=== PATIENT | male | born 1990 | race Caucasian/White ===

== ENCOUNTER → 2017-05-13 | Outpatient (CLI) | payer OTHER | LOC: FIMAGING 14:52 | PROVIDERS: ATTEND Otolaryngology | DX: Z01.818 Encounter for other preprocedural examination (principal); H66.90 Otitis media, unspecified, unspecified ear; H69.90 Unspecified Eustachian tube disorder, unspecified ear ==

== ENCOUNTER 2017-06-03 10:17 | Day surgery (SDC) | payer OTHER ==
[2017-06-03] MEDS ORDERED: LR 1,000 ML IV ONE (10:46)
[2017-06-03] MEDS ORDERED: OXYMETAZOLINE 30 ML NASAL SPRAY ONE ×2 (11:11→14:35)
[2017-06-03] MEDS ORDERED: BACITRACIN ZINC 14.2 GM OINTTUBE TP ONE (11:11)
[2017-06-03] MEDS ORDERED: CIPROFLOXACIN 0.3% ONE (11:12)
[2017-06-03] MEDS ORDERED: METHYLENE BLUE 0.5% 50 MG/10 ML AMP ONE (11:12)
--- NOTE | 2017-06-03 11:21 | PDANEPAE ---
ANE Past Medical History - Cardiovascular History Hx Hypertension: No Hx Arrhythmias: No Hx Chest Pain: No Hx Coronary Artery / Peripheral Vascular Disease: No Hx CHF / Valvular Disease: No Hx Palpitations: No - Pulmonary History Hx Asthma/Reactive Airway Disease: Yes Hx Recent Upper Respiratory Infection: No Hx Oxygen in Use at Home: No Hx Sleep Apnea: No Sleep Apnea Screening Result - Last Documented: Positive Pulmonary History Comment: FREQUENT PNEUMONIA/BRONCHITIS. LAST PNEUMONIA 2017 NO CURRENT SYMPTOMS - Neurologic History Hx Cerebrovascular Accident: No Hx Seizures: No Hx Dementia: No - Endocrine History Hx Diabetes: No Hypothyroid: No Hyperthyroid: No Obesity: yes, severe - Renal History Hx Renal Disorders: No - Liver History Hx Hepatic Disorders: No - Neurological & Psychiatric Hx Hx Neurological and Psychiatric Disorders: No - Cancer History Hx Cancer: No - Congenital Disorder History Hx Congenital Disorders: No - GI History GERD: no Hx Gastrointestinal Disorders: Yes Gastrointestinal History Comment: ? IBS - Other Health History Other Health History: LT WRIST INJURY YR AGO RESIDUAL ISSUES SWELLING LIMITED ROM - Chronic Pain History Chronic Pain: Yes (LT WRIST) - Surgical History Prior Surgeries: ORIF RT FEMUR ANE Review of Systems Review of Systems: - Exercise capacity METS (RN): 4 METS ANE Patient History - Allergies Allergies/Adverse Reactions: No Known Allergies Allergy (Unverified 05/28/17 11:29) - Home Medications Home Medications: Gabapentin [Neurontin 300 MG (*)] 300 mg PO TID 05/28/17 [Last Taken 06/02/17] Omeprazole 40 mg PO DAILY 05/28/17 [Last Taken 06/02/17] - NPO status NPO Since - Liquids (Date): 06/02/17 NPO Since - Liquids (Time): 23:00 NPO Since - Solids (Date): 06/02/17 NPO Since - Solids (Time): 21:30 - Anes Hx Anes Hx: no prior problems - Smoking Hx Smoking Status: Never smoked - Family Anes Hx Family Anes Hx: neg - N/A ANE Labs/Vital Signs - Vital Signs Blood Pressure: 138/82 Heart Rate: 93 Respiratory Rate: 16 O2 Sat (%): 93 Height: 180.34 cm Weight: 142.882 kg ANE Physical Exam - Airway Neck exam: FROM Mallampati Score: Class 2 Mouth exam: normal dental/mouth exam - Pulmonary Pulmonary: no respiratory distress, no rales or rhonchi, clear to auscultation - Cardiovascular Cardiovascular: regular rate and rhythym, no murmur, rub, or gallop - ASA Status ASA Status: II ANE Anesthesia Plan Anesthesia Plan: general endotracheal anesthesia Total IV Anesthesia: No
[2017-06-03] MEDS ORDERED: MIDAZOLAM 2 MG/2 ML VIAL IVP ONE (11:26)
[2017-06-03] MEDS ORDERED: ceFAZolin 2 GM/SWFI 2 GM/20 ML SYR IVP ONE (12:10)
--- NOTE | 2017-06-03 12:10 | PDHPUP ---
History & Physical Update H&P update statement: This history and physical update is based on an assessment of the patient which was completed after admission or registration (within 24 hours), but prior to the surgery/procedure. H&P update: H&P reviewed & patient examined, no change in patient's condition since H&P completed
[2017-06-03] MEDS ORDERED: ceFAZolin 2 GM/SWFI 20 ML SYR IVP ONE (12:19)
[2017-06-03] MEDS ORDERED: ceFAZolin 3 GM in STERILE WATER INJ 30 ML IV ONE (12:30)
[2017-06-03] MEDS ORDERED: PROPOFOL 200 MG/20 ML VIAL ONE (12:30)
[2017-06-03] MEDS ORDERED: LIDOCAINE 2% 5 ML SDV ONE (12:30)
[2017-06-03] MEDS ORDERED: fentaNYL 100 MCG/2 ML INJ ONE ×6 (12:30→16:03)
[2017-06-03] MEDS ORDERED: ROCURONIUM 50 MG/5 ML VIAL ONE ×2 (12:31→13:52)
[2017-06-03] MEDS ORDERED: ONDANSETRON 4 MG/2 ML VIAL ONE (12:32)
[2017-06-03] MEDS ORDERED: DEXAMETHASONE 4 MG/ML VIAL ONE ×3 (12:54→12:55)
[2017-06-03] MEDS ORDERED: GLYCOPYRROLATE 0.2 MG/1 ML VIAL ONE (12:59)
[2017-06-03] MEDS: EPINEPHrine 30 MG/30 ML MDV (0.1 MG/0.1 ML) ONE ×2 (13:29→13:41)
[2017-06-03] MEDS: LIDOCAINE 1% 300 MG/30 ML SDV ONE ×2 (13:30→14:26)
[2017-06-03] MEDS ORDERED: ONDANSETRON 4 MG/2 ML VIAL IVP PRN (13:33)
[2017-06-03] MEDS ORDERED: PHENYLEPHRINE HCL 100 MCG/ML SYR IVP PRN (13:33)
[2017-06-03] MEDS ORDERED: ALBUTEROL 3 ML DEYVIAL IH PRN (13:33)
[2017-06-03] MEDS ORDERED: PROMETHAZINE HCL 25 MG/ML INJ IVP PRN (13:33)
[2017-06-03] MEDS ORDERED: HYDROmorphone HCL/NS 0.5 MG/ML SYR IVP PRN (13:33)
[2017-06-03] MEDS ORDERED: MEPERIDINE 25 MG/ML SYR IVP PRN (13:33)
[2017-06-03] MEDS ORDERED: epHEDrine SULFATE 10 MG/ML SYR IVP PRN (13:33)
[2017-06-03] MEDS ORDERED: HYDROCODONE/APAP 5/325 TAB PO PRN (13:33)
[2017-06-03] MEDS ORDERED: NALOXONE HCL 0.4 MG/ML INJ IVP PRN (13:33)
[2017-06-03] MEDS ORDERED: ACETAMINOPHEN 500 MG TAB PO PRN (13:33)
[2017-06-03] MEDS ORDERED: LR 500 ML IV PRN (13:33)
[2017-06-03] MEDS ORDERED: LABETALOL HCL 5 MG/ML 20 ML MDV IVP PRN (13:33)
[2017-06-03] MEDS ORDERED: oxyCODONE IR 5 MG TAB PO PRN (13:33)
[2017-06-03] MEDS ORDERED: METOPROLOL TARTRATE 5 MG/5 ML INJ ONE (13:36)
[2017-06-03] MEDS ORDERED: SURGIFLO MATRIX KIT WITH THROMBIN 8ml TP ONE (14:39)
[2017-06-03] MEDS: fentaNYL 100 MCG/2 ML INJ IVP PRN ×3 (15:17→16:05)
--- NOTE | 2017-06-03 15:25 | POSTANESTH ---
Post Anesthetic Evaluation Cardiovascular Status: Similar to Pre-Op Cond Respiratory Status: Normal, Stable Level of Consciousness/Mental Status: Can Participate in Eval Pain Control: Adequate, Prn Tx Ordered Nausea/Vomiting Control: Adequate, Prn Tx Ordered Complications Possibly Related to Anesthesia: None Noted
[2017-06-03 17:54] VITALS: BP 121/93
--- NOTE | 2017-06-03 20:48 | GOP ---
[f rep st] OPERATIVE REPORT DATE OF OPERATION: 06/03/2017 SURGEON: Sara Mckeon MD ANESTHESIA: General. PREOPERATIVE DIAGNOSIS: 1. Nasal obstruction. 2. Eustachian tube dysfunction. 3. Chronic otitis media with effusion. 4. History of multiple prior ear tubes. 5. Inferior turbinate hypertrophy. 6. Tonsillar hypertrophy with suspected sleep apnea. POSTOPERATIVE DIAGNOSIS: 1. Nasal obstruction. 2. Eustachian tube dysfunction. 3. Chronic otitis media with effusion. 4. History of multiple prior ear tubes. 5. Inferior turbinate hypertrophy. 6. Tonsillar hypertrophy with suspected sleep apnea. PROCEDURE PERFORMED: 1. Submucous resection of the inferior turbinates bilaterally. 2. Septal spur resection on the left. 3. Nasal endoscopy. 4. Ear tube placement bilaterally. 5. Eustachian tube balloon dilation bilaterally. SURGEON: Sara Mckeon MD. COMPLICATIONS: None. FINDINGS: Patient is found to have enlarged turbinates bilaterally. He was noted to have significantly collapsed eustachian tubes on both sides. On the left side, he had a very large spur that obstructed the ability to pass the balloon for eustachian tube dilation, and so the spur was taken down. He was noted to have large tonsils, although the instrumentation that we had available did not give me good enough access, secondary to his anatomy or his body habitus , to be able to do a tonsillectomy safely, so the tonsillectomy was not done. ESTIMATED BLOOD LOSS: 100 cc. INDICATIONS: Mr. John is a very pleasant 26-year-old man who has a history of chronic ear problems with eustachian tube dysfunction. He has had over 10 sets of ear tubes in the past and was noted to have fluid on exam bilaterally as well as collapsed eustachian tubes on exam of the nasopharynx. A CT scan was done preoperatively to evaluate the temporal bone anatomy and there was no significant abnormal variations. The carotid had a normal course with no bony dehiscence. He also was noted to have enlarged turbinates on both sides. He has tried nasal steroids in the past without significant improvement. He also has significant snoring, pauses, and chronic tonsillitis. It was felt he would benefit from the above procedure. DESCRIPTION OF PROCEDURE: Patient was first seen in the preoperative area where informed consent was obtained. He was then brought back to the operating room where Anesthesia sedated and intubated him. Initially, a universal time- out protocol was performed, and once this was confirmed, a speculum was placed in the left ear after he was prepped and draped in the normal fashion. the operating microscope was brought into the field and some cerumen was removed with a curette. The TM was visualized. He was noted to have fluid behind the TM as well as the TM was somewhat thick. An anterior-inferior quadrant myringotomy was made, and a collar button PE tube was placed after suctioning out the effusion on this left side. Once the tube was in place, ofloxacin drops were placed on the left. We then turned our attention to the right side, did the exact same thing. He had cleared the effusion on the right side, although he had significant thickening of TM. So, again, an anterior-inferior quadrant myringotomy was made. There was air within the middle ear space and a collar button PE tube was placed without difficulty followed by ofloxacin drops. All instruments were removed and we then turned our attention to the nose. At this point, the bed was turned 90 degrees. He was prepped and draped in normal fashion. Epi-soaked pledgets were placed within the nares bilaterally, and then once these had sufficient time to act, they were removed. Initially used a 30-degree scope to visualize the nasopharynx on the right side. He was noted to have significantly collapsed eustachian tube. The Entellus balloon was entered into the nose and then back into the nasopharynx under direct visualization using the scope. At this point, I was able to visualize the eustachian tube orifice and the probe was placed gently in the orifice and then slid slightly laterally. Once it was in the proper position, there was no significant hindrance to the probe advancing, the balloon was advanced and then the balloon was inflated. This was left inflated for 2 minutes. The balloon was then deflated, brought back out of the eustachian tube, and then the probe was removed. Once this was done, I then turned my attention to the left side. I was able to visualize the left-sided eustachian tube as well, although secondary to a very large spur, I was unable to access having the scope and the balloon device on the same side. I did try placing the scope on the right and the balloon on the left and this still had some hindrance with maneuvering the scope, and so it was felt that removing the septal spur would be necessary. So, at this point, the eustachian tube balloon was removed, and the 0-degree scope was used for visualization. A wide 6 mm osteotome was used to place this just anterior to where the spur was, and then the osteotome was used to remove the spur as a whole from the left septum. This was removed including the mucosa with a Quirino forceps. Afrin-soaked pledgets were placed within this area on the left side. He did have some bleeding from the bone at this spot and so the pledgets were removed and about 2-3 cc of 2% lidocaine with 1:100,000 epinephrine was injected into the septum around this area. I then placed just a very small amount, less than 0.5 cc, on each side of the head of the inferior turbinates. Afrin-soaked pledgets were then placed again. At this point, while this was decongesting and gaining hemostasis, I turned my attention to the oropharynx. A shoulder roll was placed and secondary to his body habitus, i was still not able to extend his neck a significant amount. The neck was extended as much as it could be without causing any other problems, and then the large Dolores-Stew mouth gag was placed on the tongue and then retracted and suspended. The largest mouth gag still left a significant amount of posterior tongue exposed and didn't widen the OP posteriorly enough, as well as I did not have very good access to the tonsils. The bottom 3rd of the tonsils on both sides were significantly hard to access. I did try different retractors but at this point, decided not to do the tonsils secondary to the inability to access this well and, therefore, perform a safe tonsillectomy. I think the major concern was that the instrumentation would lot not allow me to perform this well and could cause other problems, especially bleeding with inability to visualize this well. So, at this point, the mouth gag was unsuspended, unretracted, and removed. So, at this point, we turned our attention back to the nose. The Afrin pledgets were removed from the left side of the nasal cavity and at this point, the 45-degree scope was advanced through the left nostril and then the eustachian tube balloon dilator was placed through the left nostril as well until I was able to visualize the eustachian tube, and the probe was placed in eustachian tube orifice until it slid gently laterally. Once this was in the proper position, under direct visualization, the balloon was advanced and then it was expanded for 2 minutes. Once this 2 minutes was up, the balloon was let down, pulled out of the eustachian tube orifice, and the probe was removed as well. At this point, the nasal cavity was irrigated out copiously with normal saline and suctioned clear. I then used a [address] a small stab incision on the left side of the inferior turbinates, and a submucous resection of the inferior turbinate was performed along its length on the left side under direct visualization using the 0-degree scope. Once this was done, I then did the exact same thing on the right side, performing a submucous resection along its length, and then the blade was removed. At this point, the [place] was used to first infracture and then outfracture the inferior turbinate on the left and then the right until I had significantly more patency. He still had some oozing from the area of the septum. The suction cautery was used to cauterize an area of mucosa that was oozing, and then a small amount of FloSeal was used on this left side to prevent any further bleeding. At this point, all instruments were removed. The pledgets were removed. The patient was turned back over to Anesthesia, where he was awakened and extubated and taken to PACU in stable condition. There were no significant complications, and he tolerated the procedure well. /[id number]/MODL MTDD
== END 2017-06-03 19:15 | disposition home or self-care (01) ==
LOC: FSGY 10:17 → EDSTATUS 12:30 → FSGY 19:15
PROVIDERS: ATTEND Otolaryngology
DX: J34.3 Hypertrophy of nasal turbinates (principal); H69.83 Other specified disorders of Eustachian tube, bilateral; H65.493 Other chronic nonsuppurative otitis media, bilateral; J31.0 Chronic rhinitis; J35.1 Hypertrophy of tonsils; Z96.22 Myringotomy tube(s) status; G47.30 Sleep apnea, unspecified
CPT/HCPCS: 30140; 69421; C1726; J0171; J0690; J1100; J2250; J2370; J2405; J2704; J3010; Q9968

== ENCOUNTER 2017-10-27 01:55 | Emergency (ER) | payer OTHER ==
[2017-10-27] MEDS ORDERED: CEPHALEXIN 500MG PREPACK#4 BTL TAKEHOME ONE (02:03)
--- NOTE | 2017-10-27 02:03 | EDPHY ---
H & P Time Seen by Provider: 10/27/17 02:00 HPI/ROS: CHIEF COMPLAINT: Tender lesion right arm HISTORY OF PRESENT ILLNESS: 26-year-old immunocompetent male with no history of recurrent skin infections or cutaneous MRSA complaining tender for bronchial or lesion right volar forearm. Atraumatic. No history of similar. PRIMARY CARE PROVIDER: REVIEW OF SYSTEMS: 10 systems reviewed and are negative with exception of illness mentioned in the history of present illness PHYSICAL EXAM (Prior to examination, patient consented to physical exam, hands were washed and my usual and customary physical exam procedures followed) 1) GENERAL: Well-developed, well-nourished, alert and oriented. Appears to be in no acute distress. 2) HEAD: Normocephalic 3) HEENT: sclera anicteric 4) LUNGS: Breathing comfortably. 5) SKIN: Tender furuncle right volar forearm. No crepitus. No lymphangitic streaking. No axillary adenopathy. 6) MUSCULOSKELETAL: So soft compartments. No crepitus. Smoking Status: Never smoked Allergies/Adverse Reactions: No Known Allergies Allergy (Unverified 05/28/17 11:29) Home Medications: Medication Instructions Recorded Gabapentin [Neurontin 300 MG (*)] 300 mg PO TID 05/28/17 Omeprazole 40 mg PO DAILY 05/28/17 Cephalexin [Keflex (*)] 500 mg PO Q6H #28 cap 06/03/17 Ofloxacin 0.3% [Ocuflox 0.3%] 3 drops EACHEAR TID #1 opht.btl 06/03/17 oxyCODONE HCL/ACETAMINOPHEN 1 each PO Q4H PRN #25 tablet 06/03/17 [Percocet 5-325 mg Tablet] Cephalexin [Keflex] 500 mg PO TID 10 Days cap 10/27/17 MDM/Departure - Depart Disposition: Home, Routine, Self-Care Clinical Impression: Furuncle right forearm Condition: Good Instructions: Furunculosis and Carbunculosis (ED), Cephalexin (By mouth) Prescriptions: Cephalexin [Keflex] 500 mg PO TID 10 Days cap Referrals: Andrez Wesley DO [Medical Doctor] - 2-3 days, call for appt.
[2017-10-27 02:10] VITALS: BP 133/74
== END 2017-10-27 02:14 | disposition home or self-care (01) ==
DX: L02.425 Furuncle of right lower limb (principal)